=== PATIENT | female | born 1975 ===

== ENCOUNTER 2021-05-07 16:00 | Outpatient (CLI) | payer OTHER, SELFPAY ==
--- NOTE | ~2021-05-07 | MR_ITS ---
EXAMINATION: MR lumbar spine wo con DATE: 05/07/2021 16:41 INDICATION: Lumbar radiculopathy. TECHNIQUE: Magnetic resonance imaging (MRI) of the lumbar spine was performed without intravenous con trast. Sequences included sagittal T2-weighted FSE, sagittal T2-weighted FS FSE, sagittal T1-weighted FSE, and axial T2-weighted FSE. COMPARISON: Lumbar spine radiographs 05/07/2021 FINDINGS: Bone alignment is normal. Vertebral body heights are normal. There is mildly decreased disc height at L3-L4 and L4-L5. The distal spinal cord signal intensity is normal. The conus medullaris i s at L2. The following disc levels are specifically discussed: L1-L2: The disc does not extend beyond the endplate margin. There is mild bilateral facet joint osteo arthritis. There is no neural foraminal stenosis. There is no central canal stenosis. L2-L3: The disc does not extend beyond the endplate margin. There is moderate bilateral facet joint o steoarthritis. There is no neural foraminal stenosis. There is no central canal stenosis. L3-L4: The disc is bulging. There is severe bilateral facet joint osteoarthritis. There is mild bilat eral neural foraminal stenosis. There is mild central canal stenosis. L4-L5: The disc is bulging. There is severe bilateral facet joint osteoarthritis. There is a 9 x 4 mm synovial cyst from left facet joint in the central spinal canal. There is mild bilateral neural fora tahmina stenosis. There is mild central canal stenosis. There is moderate stenosis of left lateral rece ss. L5-S1: The disc does not extend beyond the endplate margin. There is severe bilateral facet joint ost eoarthritis. There is mild bilateral neural foraminal stenosis. There is no central canal stenosis. IMPRESSION: 1. Moderate stenosis of left lateral recess at L4-L5 secondary to a synovial cyst. Otherwise mild lum bar spondylosis. Reviewed, dictated and finalized at location A. OYMENT ADVISOR IMPRESSION: 1. Moderate stenosis of left lateral recess at L4-L5 secondary to a synovial cy st. Otherwise mild lumbar spondylosis.
--- NOTE | ~2021-05-07 | XR_ITS ---
XR lumbar spine min 4V 05/07/2021 16:49 Indication: Low back pain Procedure: 5 views lumbar spine including flexion and extension Comparison: No prior studies for comparison. Findings: No fracture, subluxation or dislocation. Vertebral body and disc heights are preserved. No significant alteration of alignment with flexion/extension. There is facet hypertrophy at L4-5 and L5 -S1 with grade 1 degenerative spondylolisthesis at L4-5. Impression: 1: Mild lumbar spondylosis with grade 1 degenerative spondylolisthesis at L4-5. Reviewed, dictated and finalized at location A. CONSULTANT Impression: 1: Mild lumbar spondylosis with grade 1 degenerative spondylolisthesis at L4-5.
== END 2021-05-07 16:01 ==
PROVIDERS: PCP Internal Medicine
DX: M54.16 Radiculopathy, lumbar region (principal); M48.061 Spinal stenosis, lumbar region without neurogenic claudication; M47.816 Spondylosis without myelopathy or radiculopathy, lumbar region; M43.16 Spondylolisthesis, lumbar region
CPT/HCPCS: 72110; 72148